=== PATIENT | female | born 1985 | race Caucasian/White ===

== ENCOUNTER 2024-03-16 14:44 | Emergency (ER) | payer OTHER, SELFPAY ==
[2024-03-16 14:48] VITALS: BP 130/79; PULSE 79; TEMP 36.6; O2SAT 97; BMI 53.2
--- NOTE | 2024-03-16 14:53 | XR_ITS ---
[facility] [id number] Patient Name: TORO VILLASEÑOR MRN: [id number] date: 1985 Sex: F Assigned Patient Location: ED.MAIN Current Patient Location: Accession/Order Number: [id number] Exam Date: 03/16/2024 15:13 Report Date: 03/16/2024 16:21 At the request of: CHUCK MULLEN Procedure: XR foot LT min 3V HISTORY: injury COMPARISON: There are no previous studies available for comparison. TECHNIQUE: 3 views of the left foot. FINDINGS: BONE DENSITY: Normal. Plantar calcaneal spur. JOINTS: No acute abnormality. FRACTURE: No acute fracture. DISLOCATION: None. SOFT TISSUES: No radiopaque foreign body. XR/XR foot LT min 3V IMPRESSION: No acute osseous or joint abnormality. Electronically authenticated by: MEKA SALCIDO Date: 03/16/2024 16:21
[2024-03-16] MEDS: IBUPROFEN 400 MG TABLET 800 MG PO (15:57)
--- NOTE | 2024-03-16 15:59 | ED.GENADUL1 ---
HPI HPI - General Adult General Chief complaint: Extremity Injury, Lower Stated complaint: LOWER EXTREMINTY INJURY, LEFT Time Seen by Provider: 03/16/24 14:52 Source: patient Mode of arrival: walk-in Limitations: no limitations History of Present Illness HPI narrative: 38-year-old female presents to the emergency room chief complaint of left foot pain. 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 No previous fractures extremity. States awoke this morning with increased pain difficulty ambulating. There is no obvious swelling or ecchymosis at this time. Patient has not taken anything for pain prior to arrival. Related Data Previous Rx's ?Medication ?Instructions ?Recorded ibuprofen 800 mg tablet 800 mg PO Q8H PRN pain 4 days #25 03/16/24 tabs Allergies Allergy/AdvReac Type Severity Reaction Status Date / Time No Known Drug Allergies Allergy Verified 03/16/24 14:48 Opioid HPI Opioid Management Most Recent Opioid Data: Last Pain Scale 7 03/16/24 15:57 03/16/24 Last MAR Pain Assessment 03/16/24 15:57 Review of Systems ROS Narrative All Systems are negative except as noted/marked.All systems reviewed and otherwise negative PFSH PFSH Social History Little interest or pleasure in doing things: not at all Feeling down, depressed, or hopeless: not at all Exam Narrative Exam Narrative: Nurses note and vital signs reviewed and patient is not hypoxic. General: The patient appears well and in no apparent distress. Patient is resting comfortably on cart. Skin: Warm, dry, no pallor noted. There is no rash noted. Head: Normocephalic, atraumatic Ears, Nose, Mouth, and Throat: oral mucosa is moist. Nares patent. Mouth without vesicles. Ear canals patent. Tm's without Erythema Cardiovascular: Regular Rate and Rhythm Musculoskeletal: Tenderness to the fourth and fifth metatarsal of the left foot , maria de jesus cute swelling or ecchymosis the patient has no evidence of calf tenderness, no pitting edema, symmetrical pulses noted bilaterally Neurological: A&O x4, normal speech Psychiatric: Cooperative Constitutional Vital Signs, click to edit/add: Last Vital Signs Temp 97.8 F 03/16/24 14:48 Pulse 79 03/16/24 14:48 Resp 18 03/16/24 14:48 BP 130/79 03/16/24 14:48 Pulse Ox 97 03/16/24 14:48 O2 Del Method Room Air 03/16/24 14:48 Course Vital Signs Vital signs: Vital Signs Temperature 97.8 F 03/16/24 14:48 Pulse Rate 79 03/16/24 14:48 Respiratory Rate 18 03/16/24 14:48 Blood Pressure 130/79 03/16/24 14:48 Pulse Oximetry 97 03/16/24 14:48 Oxygen Delivery Method Room Air 03/16/24 14:48 Temperature 97.8 F 03/16/24 14:48 Pulse Rate 79 03/16/24 14:48 Respiratory Rate 18 03/16/24 14:48 Blood Pressure 130/79 03/16/24 14:48 Pulse Oximetry 97 03/16/24 14:48 Oxygen Delivery Method Room Air 03/16/24 14:48 Medical Decision Making MDM Narrative Medical decision making narrative: Presents emergency room with left foot tenderness at the fourth fifth base area. No acute swelling or fractures noted on exam x-ray exam. Patient was treated as a foot sprain. Medicated with ibuprofen. Domenic wrap postop shoe applied by nursing staff. Patient be discharged home with instructions to follow-up with orthopedics. She states she will follow-up with orthopedics in [place]. She has no questions at discharge Medical Records Medical records reviewed: Yes I reviewed the patient's medical records Imaging Data foot: Attestation: I have reviewed the pertinent imaging results. Discharge Plan Discharge Chief Complaint: Extremity Injury, Lower Clinical Impression: Foot sprain Patient Disposition: Home, Self-Care Time of Disposition Decision: 16:05 Condition: Good Prescriptions / Home Meds: New ibuprofen 800 mg tablet 800 mg PO Q8H PRN (Reason: pain) 4 Days Qty: 25 0RF Print Language: Cook Islander Instructions: Foot Sprain (ED), Ice Pack Application (ED) Referrals: Physician,Non-Staff, [Primary Care Provider] - 1 week Gt Dowling MD [Physician] - 1 week Discharge Date/Time: 03/16/24 16:11
== END 2024-03-16 16:11 | disposition home or self-care (01) ==
PROVIDERS: Emergency Provider Emergency Medicine; Family Provider Family Medicine
DX: S93.602A Unspecified sprain of left foot, initial encounter (principal); X50.1XXA Overexertion from prolonged static or awkward postures, initial encounter
CPT/HCPCS: 73630; 99283